=== PATIENT | male | born 1955 | race Caucasian/White ===

== ENCOUNTER → 2023-02-14 | Outpatient (CLI) | payer MEDICARE ==
--- NOTE | 2023-02-14 11:17 | CTL ---
EXAMINATION TYPE: CT Low Dose Lung DATE OF EXAM ORDERED: 02/14/2023 HISTORY: . Lung cancer screening CT DLP: 96.[address] CTDI: 2.4 mGy Automated exposure control for dose reduction was used. SCREENING VISIT: COMPARISON: None TECHNIQUE: Low dose computed tomography scan was performed through the chest at 1 mm thick sections a nd reconstructed images in multiple planes at 1 mm and [address] DIAGNOSTIC QUALITY: Satisfactory FINDINGS: Subsegmental changes involving bilateral lungs most of atelectasis. Hyperinflation suggesting mild CO PD. No pleural effusion or pneumothorax. No failure. There is aneurysmal dilation of the ascending aorta measuring 4.2 x 4.5 cm. There is dense calcificat ion of the coronary arteries. There is borderline adenopathy in the mediastinum pretracheal space measuring 1.1 cm which is nonspec ific. There is a scoliotic curvature of the spine with hypertrophic degenerative changes. Severe multilevel degenerative disc disease seen. On axial image 153 there is a 2 mm nodule right lower lobe. On image 126 there is a 2 mm nodule in the left upper lobe. IMPRESSION: 1. Sub-5 mm pulmonary nodules bilaterally which are too small to characterize but have a benign appea emily. 2. Mild aneurysmal dilation ascending aorta measuring 4.2 x 4.5 cm. 3. Dense coronary artery calcification. CT LUNG RAD AND CT CHEST RECOMMENDATION: Lung-Rad 2 Benign Appearance or Behavior: Continue annual sc reening with LDCT in 12 months.
== END | disposition home or self-care (01) ==
LOC: RADCTMAIN 09:44
PROVIDERS: ATTEND Family Medicine
DX: Z12.2 Encounter for screening for malignant neoplasm of respiratory organs (principal); I71.21 Aneurysm of the ascending aorta, without rupture; I25.10 Atherosclerotic heart disease of native coronary artery without angina pectoris; F17.210 Nicotine dependence, cigarettes, uncomplicated; R91.8 Other nonspecific abnormal finding of lung field
CPT/HCPCS: 71271

== ENCOUNTER → 2024-02-14 | Outpatient (CLI) | payer MEDICARE ==
--- NOTE | 2024-02-15 09:19 | CTL ---
EXAMINATION TYPE: CT Low Dose Lung DATE OF EXAM ORDERED: 02/14/2024 HISTORY: . Lung cancer screening CT DLP: [address] CTDI: 1.99 mGy Automated exposure control for dose reduction was used. COMPARISON: [id number] TECHNIQUE: Low dose computed tomography scan was performed through the chest at 1 mm thick sections a nd reconstructed images in multiple planes at 1 mm and [address] DIAGNOSTIC QUALITY: Satisfactory FINDINGS: There are a few scattered micronodules, stable compared to previous. No new or suspicious lung mass o r nodule is seen. There is no airspace/consolidative density or abnormal interstitial density. There is no pleural effusion, pleural thickening or pneumothorax. There is persistent mild aneurysmal dilatation of ascending thoracic aorta which is 4.3 cm. There is no mediastinal, hilar or axillary adenopathy. Limited scans the upper abdomen reveals no gross abnormality. No focal osseous lesions are seen. IMPRESSION: 1. Lung RADS category 2 benign findings. Continue routine screening at yearly intervals. 2. Stable 4.3 cm aneurysmal dilatation of the ascending thoracic aorta. 3. No acute cardiopulmonary disease.
== END | disposition home or self-care (01) ==
LOC: RADCTMAIN 08:52
PROVIDERS: ATTEND Family Medicine
DX: Z12.2 Encounter for screening for malignant neoplasm of respiratory organs (principal); I71.21 Aneurysm of the ascending aorta, without rupture; F17.210 Nicotine dependence, cigarettes, uncomplicated
CPT/HCPCS: 71271

== ENCOUNTER → 2025-04-24 | Outpatient (CLI) | payer MEDICARE ==
--- NOTE | 2025-04-24 12:14 | CTL ---
EXAMINATION TYPE: CT Low Dose Lung DATE OF EXAM: 04/24/2025 11:38 AM COMPARISON: 02/14/2024 CLINICAL INDICATION: Male, 69 years old with history of Z12.2 LUNG CA SCR F17.210NICOTINE DEPENDENCE, C[employer], personal tobacco use, History of tobacco use. Current smoker with 38 pack-year history. TECHNIQUE: Low dose computed tomography scan was performed through the chest at 1 mm thick sections a nd reconstructed images in multiple planes at 1 mm and [address] DLP: 94 mGy[address], [address] CTDI: 2.6 mGy, Automated exposure control for dose reduction was used. CT DIAGNOSTIC QUALITY: Satisfactory FINDINGS: Heart normal size without pericardial effusion. Extensive three-vessel coronary artery calcifications are present and are a marker for coronary artery disease. Mild aneurysm ascending aorta at least 4.2 cm. Moderate atherosclerotic calcifications aortic arch an d descending thoracic aorta. Mild aneurysm lower descending thoracic aorta 3.0 cm. Bibasilar groundglass opacities have slightly increased. There appears to be mild bronchiolectasis at the lung bases. Mild diffuse bronchial wall thickening. Moderate emphysematous change in the backgro und. A few scattered 4 mm and smaller pulmonary nodules, some of which represent benign calcified granulom as remain unchanged. No new or suspicious pulmonary nodule. Visualized upper abdomen shows no gross abnormality. Bones: Scattered moderate degenerative disc disease mid and lower thoracic spine. Accentuated upper t horacic kyphosis. Dextroconvex scoliosis thoracic spine. IMPRESSION: 1. LungRADS 2, benign. No new or suspicious pulmonary nodules. 2. COPD with moderate emphysema. Recommend smoking cessation. 3. Groundglass changes in the lower lungs have increased. Consider hazy atelectasis versus possibilit y of smoking associated DIP. 4. Similar mild aneurysm ascending aorta 4.2 cm and extensive three-vessel coronary artery calcificat ions. CT LUNG RAD AND CT CHEST RECOMMENDATION: Lung-Rad 2 Benign Appearance or Behavior: Continue annual sc reening with LDCT in 12 months. S Modifier (other clinically significant findings): None [facility], , 04/24/2025 12:12 PM
== END | disposition home or self-care (01) ==
LOC: RADCTMAIN 11:02
PROVIDERS: ATTEND Family Medicine
DX: Z12.2 Encounter for screening for malignant neoplasm of respiratory organs (principal); F17.210 Nicotine dependence, cigarettes, uncomplicated; J43.9 Emphysema, unspecified; I25.10 Atherosclerotic heart disease of native coronary artery without angina pectoris; I71.21 Aneurysm of the ascending aorta, without rupture
CPT/HCPCS: 71271